=== PATIENT | female | born 1975 | race Caucasian/White ===

== ENCOUNTER 2018-12-11 06:41 | Day surgery (SDC) | payer BC ==
[~2018-12-11 06:41] MED LIST: Acetaminophen TAB* 325 MG PO ONE; Buffered Lidocaine 1% SYRIN* 1 ML/SYRINGE INTRADERM ONE; Gabapentin CAP(*) 300 MG PO ONE; Lactated Ringers 1000 ML Bag* 1,000 ML IV SCH
[2018-12-11] MEDS ORDERED: Gabapentin CAP(*) 300 MG ONE (07:16)
[2018-12-11] MEDS ORDERED: Acetaminophen TAB* 325 MG ONE (07:17)
[2018-12-11] MEDS ORDERED: ceFAZolin 2 GM PREMIX in ORs 2 GM/50 ML BAG IVPB ONE (07:17)
[2018-12-11] MEDS ORDERED: Buffered Lidocaine 1% SYRIN* 1 ML/SYRINGE INTRADERM ONE (07:17)
[2018-12-11] MEDS ORDERED: Bupivacaine 0.25% EPI 200,000* 30 ML SDV ONE (08:17)
[2018-12-11] MEDS ORDERED: fentaNYL* 50 MCG/ML 2 ML VIAL (100 MCG VIAL) ONE ×3 (09:13→11:32)
[2018-12-11] MEDS ORDERED: Midazolam* 1 MG/ML 2 ML VIAL (2 MG) ONE (09:13)
[2018-12-11] MEDS ORDERED: Cisatracurium* 2 MG/ML MDV 5 ML ONE (09:14)
[2018-12-11] MEDS ORDERED: Ondansetron INJ* 2 MG/ML VIAL ONE (09:14)
[2018-12-11] MEDS ORDERED: Dexamethasone IV* 4 MG/ML 1 ML (4 MG) ONE (09:14)
[2018-12-11] MEDS ORDERED: Propofol* 10 MG/ML 20 ML BTL ONE (09:14)
[2018-12-11] MEDS ORDERED: Ketorolac INJ* 30 MG/ML 1 ML VIAL ONE (09:14)
[2018-12-11] MEDS ORDERED: Famotidine IV* 10 MG/ML 2 ML (20 mg) ONE (09:26)
[2018-12-11] MEDS ORDERED: Scopolamine 1.5 mg* PATCH TRANSDERM PRN (09:57)
[2018-12-11] MEDS ORDERED: Acetaminophen IV 1GM/100ML * 1,000 MG/100 ML VIAL IVPB ONE (09:57)
[2018-12-11] MEDS ORDERED: Naloxone* 0.4 MG/ML 1 ML VIAL IV PRN (09:57)
[2018-12-11] MEDS ORDERED: fentaNYL* 50 MCG/ML 2 ML VIAL (100 MCG VIAL) IV PRN ×2 (09:57)
[2018-12-11] MEDS ORDERED: DiMENhydriNATE IV* 50 MG/ML VIAL IV PUSH PRN (09:57)
[2018-12-11] MEDS ORDERED: oxyCODONE TAB* 5 MG TAB PO PRN ×2 (09:57)
[2018-12-11] MEDS ORDERED: diPHENhydraMINE IV* 50 MG/ML 1 ml VIAL (BENADRYL) IV PRN (09:57)
[2018-12-11] MEDS ORDERED: PROCHLORPERAZINE INJ 5 MG/ML 2 ML VIAL IV PRN (09:57)
[2018-12-11] MEDS ORDERED: Ondansetron INJ* 2 MG/ML VIAL IV PRN (09:57)
[2018-12-11] MEDS ORDERED: Acetaminophen IV 1GM/100ML * 100 ML ONE (09:59)
[2018-12-11] MEDS ORDERED: Lidocaine 2% PF * 5 ML VIAL ONE (10:19)
[2018-12-11 11:23] VITALS: BP 130/72
[2018-12-11] MEDS ORDERED: oxyCODONE TAB* 5 MG TAB ONE (11:28)
--- NOTE | 2018-12-11 13:02 | OP ---
CC: Yair Paulson MD; Dr. Felicity Meadows OPERATIVE REPORT: DATE OF OPERATION: 12/11/18 DATE OF : 79 SURGEON: Yair Paulson MD. PLANT ANATOMIST: PRESTON Flores. ANESTHESIOLOGIST: Dr. Elkins. ANESTHESIA: General anesthetic, local infiltration. PRE-OP DIAGNOSIS: Biliary colic. POST-OP DIAGNOSIS: Biliary colic. OPERATIVE PROCEDURE: Laparoscopic cholecystectomy. DESCRIPTION OF PROCEDURE: The patient was supine on the operating table. After adequate general ane sthetic, compression stockings, Jaime Hugger warmer, and intravenous antibiotics, the abdomen was prep ped with antiseptic, draped in a sterile fashion. Local infiltrative anesthesia was administered. A small umbilical incision was created. Blunt port cannula was placed. Insufflation was carried out with carbon dioxide. Additional cannulae, 12 mm subxiphoid and 5 mm right upper quadrant and right a nterior axillary line were placed through small stab wounds under direct vision. The gallbladder was tented upward. Areolar tissue was taken down off the cystic duct and cystic artery. Critical view of safety was obtained. The common duct was visualized and kept out of harm's way. The cystic duct and cystic artery were both doubly clipped and divided. The gallbladder was taken off the liver bed using electrocautery. Hemostasis was obtained using cautery or pressure. The gallbladder was remove d through the subxiphoid port without difficulty. Everything was in good condition. The pneumoperit oneum was allowed to escape. Cannulae were removed. The umbilical fascia was closed with 0 Vicryl a nd skin with 5-0 Vicryl followed by Steri-Strips. She tolerated the procedure well, was awakened and extubated, and brought to Recovery in good condition. COMPLICATIONS: No complications. DRAINS: No drains. SPECIMEN: Pathologic specimen was gallbladder. COUNTS: Sponge and instrument counts correct. ESTIMATED BLOOD LOSS: 30 mL. [id number]/[facility] #: [id number]
[2018-12-14] MEDS ORDERED: Scopolamine PATCH Remove* 1 NOTE MISC PATCH OFF ONE (10:00)
== END 2018-12-11 12:11 | disposition home or self-care (01) ==
LOC: OR 06:41
PROVIDERS: ATTEND Surgery
DX: K80.10 Calculus of gallbladder with chronic cholecystitis without obstruction (principal); Z68.34 Body mass index [BMI] 34.0-34.9, adult; R10.11 Right upper quadrant pain
CPT/HCPCS: 88304; A9270-GY; J0690; J1100; J1885; J2250; J2405; J2704; J3010